=== PATIENT | male | born 1955 | race Two or more races ===

== ENCOUNTER 2020-11-22 14:19 | Inpatient (IN) | payer MEDICARE, OTHER ==
[~2020-11-22] VITALS: Ht 177.8 cm; Wt 96.6 kg
[2020-11-22] MEDS ORDERED: diphenhydrAMINE 50 MG/1 ML VIAL IM ONE ×2 (14:30→20:02)
[2020-11-22] MEDS ORDERED: OLANZAPINE 10 MG VIAL IM ONE (14:30)
[2020-11-22] MEDS ORDERED: LORAZEPAM 2 MG/1 ML VIAL IM ONE ×2 (14:30→20:02)
[2020-11-22] MEDS ORDERED: HALOPERIDOL LACTATE 5 MG/1 ML VIAL ONE (14:36)
[2020-11-22] MEDS ORDERED: HALOPERIDOL LACTATE 5 MG/1 ML VIAL IM ONE ×2 (14:45→20:02)
--- NOTE | 2020-11-22 14:45 | NUR ---
Halodol 5mg and benadryl 25mg given IM in left deltoid given acutely for patient agitation, patient noted screaming and threatening staff, no allergies noted, will continue to monitor
--- NOTE | 2020-11-22 16:18 | NUR ---
1505pm: Heel Gouger assumes care. Patient is resting comfortably on gurney with eyes closed. 1:1 sitter observation maintained. KARY Delacruz was called earlier by . 1511pm: Psych crisis saw [email or web address] [email or web address]. 1617pm: Patient is waiting for an available MHU bed & nurse@this time. MHU zinc furnace charger Araz will call ER as soon as possible.
--- NOTE | 2020-11-22 17:15 | NUR ---
1650pm: still no MHU bed or nurse available@this time, Dr Horta is aware. Patient is resting comfortably on gurney with eyes closed. 1:1 sitter maintained.
--- NOTE | 2020-11-22 17:34 | NUR ---
Patient has no allergic reaction to HAldol, hence allergy status was updated
--- NOTE | 2020-11-22 19:12 | NUR ---
Pt. admitted to MHU room 139B , under care of Dr. Gilliam. Nurse Ricardo accpeted patient. Belongings List completed. Patientl will go to MHU as soon as possible. Patient is sleeping, easily arousable, cooperative the moment. Security assistance was called to escort patient to MHU.
--- NOTE | 2020-11-22 19:13 | NUR ---
Still for transfer to [facility], endorsed to STEPHEN Major and nurse charge rn Adrian
[2020-11-22] MEDS ORDERED: TEMAZEPAM 7.5 MG CAPSULE PO PRN (20:00)
[2020-11-22] MEDS ORDERED: MAGNESIUM HYDROXIDE 30 ML LIQUID UDC PO PRN (20:00)
[2020-11-22] MEDS ORDERED: BLOOD SUGAR DIAGNOSTIC 1 EACH STRIP VI ONE (20:15)
[2020-11-22] MEDS ORDERED: METF-442 PO (20:35)
--- NOTE | 2020-11-22 21:00 | NUR ---
ADMISSION NOTE: AT APPROX 1930 ADMITTED 65 YEARS OLD MALE TO [facility] ON A 5150 FOR DTO AND GD. PER MEDICAL RECORDS, PATIENT IS HOMELESS. HE PRESENTED TO THE ED AT [facility] STATING THAT HE IS SCARED FOR HIS LIFE AND THERE IS NO WHERE SAFE FOR HIS TO GO. ONCE PATIENT WAS MEDICALLY CLEARED, HE WAS TRANSFER TO [facility] ER WHERE HE WAS PLACE ON A 5150 HOLD BY CRISES TEAM. PER HOLD, UPON ARRIVAL TO THE ED, PATIENT STARTED SCREAMING, HE BECAME AGGRESSIVE AND AGITATED, HE MADE THREATS TO HURT STAFF. HE ALSO RAMBLING ABOUT HEARING VOICES FROM GOD. IM SHOTS WERE GIVEN: HALDOL 5MG IM AND BENADRYL 25MG IM. UPON ADMISSION TO THE UNIT, PATIENT BECAME AGITATED, HE STATED, "WHERE IS MY MONEY". "THE OTHER HOSPITAL TOOK ALL MY MONEY". "I DON'T NEED TO BE HERE I NEED TO GO". PATIENT WAS RE DIRECTED AND REASSURED. HE WAS ABLE TO CALM DOWN. HOWEVER, HE REFUSED TO SIGN ADMISSION PAPERS AND BODY ASSESSMENT. THEREFORE, BODY ASSESSMENT WAS LIMITED D/T PATIENT'S POOR COMPLIANT. FACE TO FACE ASSESSMENT WAS DONE, PATIENT NOTED A/O X 3, HE REFLECTS WHAT IS WRITTEN ON THE HOLD. HE DENIED SI OR ANY THOUGHT TO HARM SELF. HE WAS ABLE TO VERBALLY CFS. PATIENT STATED THAT HE IS HERE BECAUSE HE WAS TIRED TO LIVE ON THE STREETS AND PUT UP WITH OTHER PEOPLE ON THE STREETS. HOLD WILL BE UP ON 11/25/20 AT 1530. PATIENT WAS GIVEN THE BOOKLET FOR PATIENT RIGHTS ON MENTAL HEALTH FACILITY. HE WAS ADVISED OF UNIT RULES, ROOM, BATHROOM AND ROOMMATES. PO FLUIDS AND SNACKS WERE GIVEN TO PATIENT. DR LEVINE AND CONI NUNO WERE NOTIFIED OF ADMISSION. WILL CONTINUE WITH Q15 MIN CHECKS.
--- NOTE | 2020-11-22 21:10 | NUR ---
PER PATIENT, HE STATED THAT HE ONLY TAKES METFORMIN 1000MG BID. CONI NUNO WAS NOTIFIED OF PATIENT'S ADMISSION AND TO RECONCILE HIS MEDICATIONS. WILL CONTINUE TO MONITOR Q15 MIN CHECKS
[2020-11-22 21:49] VITALS: BP 107/84
[2020-11-23] MEDS: LORAZEPAM 1 MG TABLET PO PRN ×2 (04:39→12:35)
--- NOTE | 2020-11-23 04:40 | NUR ---
PATIENT APPROACHED THE NURSING STATION STATING HE IS FEELING ANXIOUS. ATIVAN 1MG WAS OFFERED AND PATIENT WAS ABLE TO TAKE IT. WILL CONTINUE TO MONITOR.
[2020-11-23] MEDS ORDERED: diphenhydrAMINE 50 MG/1 ML VIAL IM ONE ×2 (06:15→19:45)
[2020-11-23] MEDS ORDERED: LORAZEPAM 2 MG/1 ML VIAL IM ONE ×2 (06:15→18:45)
[2020-11-23] MEDS ORDERED: HALOPERIDOL LACTATE 5 MG/1 ML VIAL IM ONE ×2 (06:15→19:45)
--- NOTE | 2020-11-23 06:25 | NUR ---
PATIENT APPROACHED THE NURSING STATION, HE STATED YELLING, DEMANDING AND SCREAMING, "WHERE IS MY CLOTHES. I WANT MY CLOTHES RIGHT NOW. I KNOW YOU ARE THE POLICE, GET ME OUT OF HERE". PATIENT WAS GIVEN MULTIPLE REDIRECTION AND REALITY CHECKS, YET INEFFECTIVE. HE CONTINUE DEMANDING, DELUSIONAL, THREATENING TO HIT STAFF AND AGITATED. DR LEVINE WAS NOTIFIED AND NEW ORDER OBTAINED TO ADMINISTER HALDOL 5MG, ATIVAN 2MG AND BENADRYL 25MG. ORDER WAS NOTED AND CARRIER OUT. WILL CONTINUE TO MONITOR.
--- NOTE | 2020-11-23 07:00 | NUR ---
PATIENT REFUSED LABS THIS MORNING. MULTIPLE REDIRECTION GIVEN YET INEFFECTIVE. WILL CONTINUE TO MONITOR.
--- NOTE | 2020-11-23 08:03 | NUR ---
Firearms Report: Cath Lab Nurse completed and submitted a DOJ firearms report for 5150 grave disability certification. A copy of report has been placed in patient chart.
[2020-11-23] MEDS: METFORMIN HCL 500 MG TABLET PO SCH ×2 (09:00→17:42)
[2020-11-23] MEDS: NICOTINE 14 MG/24HR PATCH TD SCH (09:00)
--- NOTE | 2020-11-23 09:14 | NUR ---
LASHANDA Initial Discharge Plan: Patient is homeless and will need a placement. Patient does not have any contacts at this time. This SW will help find pt proper placement. This SW contacted contact listed Mickey ([phone]) aunt and discussed treatment and discharge plan. She stated that pt will need a nursing facility and that he is an alcoholic. LASHANDA will work with the MD and pt to find proper placement and will coordinate discharge plan.
--- NOTE | 2020-11-23 09:15 | NUR ---
SW Family Contact: This SW contacted contact listed Mickey ([phone]) aunt and discussed treatment and discharge plan. She stated that pt will need a nursing facility and that he is an alcoholic.
--- NOTE | 2020-11-23 09:15 | NUR ---
Social Work Note/Substance Abuse Intervention: Patient refused brief substance abuse intervention and referred to [facility] ([phone]), [facility] ([phone]), and [facility] ([phone]). Patient's aunt Mickey stated that pt is an alcoholic.
--- NOTE | 2020-11-23 09:20 | NUR ---
Treatment Plan: Pt refused to sign treatment plan and was verbally abusive. Pt was uncooperative.
--- NOTE | 2020-11-23 12:05 | NUR ---
LASHANDA Individual Therapy: workers compensation claims supervisor met with patient for brief counseling to help address patients presenting problem aggressive behavior. Pt appeared verbally abusive and was yelling, "I want to leave". SW unable to conduct therapy at this time.
--- NOTE | 2020-11-23 18:52 | NUR ---
Pt came to the nursing station and started to yell at staff demanding to be released. Attempted to redirect the patient. Pt was not able to be redirected. Offered PO Ativan 1 mg. Pt began yelling at the nurse, saying that he only accepts 2 mg of Ativan. Security was called for safety. Pt went to the dinning room and became yelling at other patients, threatening them. Dr. Gilliam was called. Order for Ativan 2mg IM was received and given at the presence of security. Pt tolerated well.
--- NOTE | 2020-11-23 20:00 | NUR ---
CHEMICAL RESTRAIN: WHILE PATIENT WAS EVALUATED BY DR LEVINE, HE BECAME VERBALLY AGGRESSIVE TOWARD DR LEVINE. HE WAS HEARD YELLING AND SCREAMING, THEN HE STARTED THREATENING STAFF, DEMANDING TO BE RELEASED FORM THE UNIT. ATTEMPTED TO REDIRECT PATIENT BUT INEFFECTIVE. DR LEVINE ORDERED IM SHOTS: HALDOL 10MG IM AND BENADRYL 50MG IM ORDERS WERE NOTED AND CARRIER OUT. PATIENT ALSO REFUSED V/S. WILL CONTINUE TO MONITOR.
--- NOTE | 2020-11-23 21:00 | NUR ---
CHEMICAL RESTRAIN EFFECTIVE, PATIENT SLEEPING COMFORTABLE IN HIS ROOM IN BED. WILL CONTINUE TO MONITOR CLOSELY.
[2020-11-24] MEDS: NICOTINE 14 MG/24HR PATCH TD SCH (09:00)
[2020-11-24] MEDS: METFORMIN HCL 500 MG TABLET PO SCH ×2 (09:37→17:52)
[2020-11-24] MEDS: DIVALPROEX 250 MG TABLET.DR PO SCH ×3 (09:37→17:53)
[2020-11-24] MEDS: HALOPERIDOL 5 MG TABLET PO SCH ×3 (09:37→17:53)
[2020-11-24] MEDS: BENZTROPINE MESYLATE 1 MG TABLET PO SCH ×3 (09:37→17:52)
--- NOTE | 2020-11-24 13:51 | NUR ---
Gps/Staff Design Engineer- Patient requesting to be tranfered to [facility]. he does not want to be here per pt.. He stated"" i will sttart banging my head to the wall if they wont take me there" Reviewed safety, prompted to take his routine medications, claimed her does not like to take haldol, but was able to take themn
--- NOTE | 2020-11-24 13:53 | NUR ---
Gps/Manager Mobility- Patient denies being diebetic, kept asking for milk as well as juices.
--- NOTE | 2020-11-24 15:47 | NUR ---
Gps/Rear Admiral- Remain in his room in bed, quiet at this time. Monitored safety and needs.
--- NOTE | 2020-11-24 17:00 | NUR ---
NURSE CARE Report obtained from other dayshift nurse Olesya and assumed care until 1930. Received patient in room and eating dinner. Diaibetic but not on blood sugar and on oral hyperglycemia meds.
--- NOTE | 2020-11-24 19:15 | NUR ---
NURSE REPORT Report given to night nurse Tristine to assume care of patient. Diabetic, but no blood sugars to be taken.
[2020-11-25] MEDS: DIVALPROEX 250 MG TABLET.DR PO SCH ×3 (08:41→16:37)
[2020-11-25] MEDS: BENZTROPINE MESYLATE 1 MG TABLET PO SCH ×3 (08:41→16:37)
[2020-11-25] MEDS: HALOPERIDOL 5 MG TABLET PO SCH ×3 (08:41→16:37)
[2020-11-25] MEDS: NICOTINE 14 MG/24HR PATCH TD SCH (08:41)
[2020-11-25] MEDS: METFORMIN HCL 500 MG TABLET PO SCH ×2 (08:43→16:38)
[2020-11-25] MEDS: LORAZEPAM 1 MG TABLET PO PRN ×2 (09:49→18:25)
[2020-11-25] MEDS: ACETAMINOPHEN 325 MG TABLET PO PRN (12:23)
[2020-11-25 15:57] VITALS: BP 158/85
[2020-11-25] MEDS ORDERED: LOPERAMIDE HCL 2 MG CAPSULE PO PRN (18:15)
[2020-11-25] MEDS: MAG HYDROX/AL HYDROX/SIMETH 30 ML LIQUID UDC PO PRN (18:24)
--- NOTE | 2020-11-25 20:00 | NUR ---
RECEIVED REPORT FROM AM NURSE RAINA PT IS ALERT AND ORIENTED X4 INTRODUCED MYSELF TO PT HE SITTING DAYROOM WATCHING TV WITH PEERS CALM NO SIGNS OF AGITATION NOTED. WILL CONTINUE TO MONITOR.
[2020-11-26] MEDS: LORAZEPAM 1 MG TABLET PO PRN ×2 (04:06→22:02)
[2020-11-26] MEDS: DIVALPROEX 250 MG TABLET.DR PO SCH ×3 (08:35→16:15)
[2020-11-26] MEDS: METFORMIN HCL 500 MG TABLET PO SCH ×2 (08:35→16:15)
[2020-11-26] MEDS: BENZTROPINE MESYLATE 1 MG TABLET PO SCH ×3 (08:35→16:15)
[2020-11-26] MEDS: HALOPERIDOL 5 MG TABLET PO SCH ×3 (08:35→16:15)
[2020-11-26] MEDS: NICOTINE 14 MG/24HR PATCH TD SCH (08:39)
[2020-11-26] MEDS: ACETAMINOPHEN 325 MG TABLET PO PRN ×3 (08:50→22:05)
[2020-11-26] MEDS ORDERED: LORAZEPAM 2 MG/1 ML VIAL IM ONE (11:15)
[2020-11-26] MEDS ORDERED: HALOPERIDOL LACTATE 5 MG/1 ML VIAL IM ONE (11:15)
[2020-11-26] MEDS ORDERED: diphenhydrAMINE 50 MG/1 ML VIAL IM ONE (11:15)
--- NOTE | 2020-11-26 11:40 | NUR ---
Patient went to the nursing station to ask for juice. Explained to patient he is not allowed grape juice due to his diet. Patient stated he drinks beer and bottles of soda all the time and that he does not have Diabetes. Accessioner explained to him he is in a hospital and he is not allowed to have grape juice due to his diet. Accessioner explained to him we can tell the MD of this concern regarding his diet. Patient started raising voice and yelling. Patient became verbally abusive and cussing at staff. Contacted Dr. Nash for orders. Dr. Nash ordered Ativan IM 2mg, Benadryl IM 50mg and Haldol IM 10mg once. Order carried out. Patient rude using racial slurs at staff after IM administration. Will continue to monitor.
--- NOTE | 2020-11-26 18:23 | NUR ---
Patient in activity room. Alert and oriented x3. Compliant with medications and care. Patient had episode of agitation, yelling and being verbally abusive to staff. IM PRN medications were given as ordered. Patient needy and want needs met as soon as possible. Frequent patient rounding for safety. Will endorse to incoming shift for continuity of care.
--- NOTE | 2020-11-27 06:54 | NUR ---
Pt asleep at this time, no s/s of distress. No change in LOC. Compliant with meds during the shift. Slept for 6.30hrs. Needs attended to in a timely manner. Q15 min checks done. Safety precautions in place. Will endorse accordingly.
--- NOTE | 2020-11-27 07:15 | NUR ---
NURSE REPORT Report obtained from night nurse Ned and this nurse assumed care of patient. VSS. Afeb.
[2020-11-27] MEDS: BENZTROPINE MESYLATE 1 MG TABLET PO SCH ×4 (08:18→16:38)
[2020-11-27] MEDS: DIVALPROEX 250 MG TABLET.DR PO SCH ×4 (08:18→16:38)
[2020-11-27] MEDS: METFORMIN HCL 500 MG TABLET PO SCH ×2 (08:19→16:37)
[2020-11-27] MEDS: HALOPERIDOL 5 MG TABLET PO SCH ×3 (08:19→16:38)
[2020-11-27] MEDS: NICOTINE 14 MG/24HR PATCH TD SCH (08:20)
[2020-11-27] MEDS: ACETAMINOPHEN 325 MG TABLET PO PRN ×2 (08:21→14:07)
[2020-11-27] MEDS: LORAZEPAM 1 MG TABLET PO PRN ×3 (13:42→21:27)
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
--- NOTE | 2020-11-27 20:25 | NUR ---
GPS: Pt.states that he's not allergic to Seroquel. Verified with pt. several times and agreed. Communicated to MD Gilliam.
[2020-11-27] MEDS ORDERED: QUETIAPINE FUMARATE 100 MG TABLET PO SCH (21:00)
--- NOTE | 2020-11-28 06:29 | NUR ---
GPS: Pt.slept 5.30 last night. Now awake and watching tv. No aggressive behavior noted. Re-directed prn.
[2020-11-28] MEDS: LORAZEPAM 1 MG TABLET PO PRN (06:58)
--- NOTE | 2020-11-28 07:42 | NUR ---
SNF Referral: This SW sent clinicals to [facility] for placement option.
[2020-11-28] MEDS: DIVALPROEX 250 MG TABLET.DR PO SCH ×3 (08:46→16:54)
[2020-11-28] MEDS: QUETIAPINE FUMARATE 100 MG TABLET PO SCH ×2 (08:46→16:54)
[2020-11-28] MEDS: METFORMIN HCL 500 MG TABLET PO SCH ×2 (08:46→16:54)
[2020-11-28] MEDS: NICOTINE 14 MG/24HR PATCH TD SCH (08:47)
--- NOTE | 2020-11-28 13:27 | NUR ---
SNF Contact: This SW received a phone call from Skubana Admin from [facility] who stated pt is accepted.
[2020-11-28] MEDS: MAG HYDROX/AL HYDROX/SIMETH 30 ML LIQUID UDC PO PRN (18:55)
[2020-11-29] MEDS: DIVALPROEX 250 MG TABLET.DR PO SCH ×3 (08:43→16:23)
[2020-11-29] MEDS: METFORMIN HCL 500 MG TABLET PO SCH ×2 (08:43→16:24)
[2020-11-29] MEDS: QUETIAPINE FUMARATE 100 MG TABLET PO SCH ×2 (08:43→16:23)
[2020-11-29] MEDS: NICOTINE 14 MG/24HR PATCH TD SCH (08:44)
--- NOTE | 2020-11-29 11:05 | NUR ---
Court Hearing: Patient's court hearing for 1180 was today and it was upheld for GD.
--- NOTE | 2020-11-29 15:26 | NUR ---
Individual Therapy: adult protective caseworker met with patient for brief counseling for patient's presenting problem aggressive behavior. Pt appeared to be labile. Pt did not want to conduct therapy at this time.
[2020-11-29] MEDS: LORAZEPAM 1 MG TABLET PO PRN (19:04)
[2020-11-29 20:11] VITALS: BP 179/84
[2020-11-30] MEDS: QUETIAPINE FUMARATE 100 MG TABLET PO SCH ×2 (09:00→13:24)
[2020-11-30] MEDS: NICOTINE 14 MG/24HR PATCH TD SCH (09:00)
[2020-11-30] MEDS: DIVALPROEX 250 MG TABLET.DR PO SCH (10:01)
[2020-11-30] MEDS: METFORMIN HCL 500 MG TABLET PO SCH ×2 (10:01→17:51)
[2020-11-30] MEDS: LORAZEPAM 1 MG TABLET PO PRN (13:18)
[2020-11-30] MEDS ORDERED: DIVALPROEX 500 MG TABLET.DR PO SCH (21:00)
[2020-11-30] MEDS ORDERED: QUETIAPINE FUMARATE 25 MG TABLET PO SCH (21:00)
--- NOTE | 2020-12-01 07:27 | NUR ---
pt slept for approx 7.45 hrs. through the night. he refused blood drawn for valproic levels. he got verbally aggressive stating, "I say NO, don't you understand NO. get out of my room!". He is hard to redirect. will continue to monitor.
[2020-12-01] MEDS: HALOPERIDOL 5 MG TABLET PO SCH ×3 (08:25→16:30)
[2020-12-01] MEDS: METFORMIN HCL 500 MG TABLET PO SCH ×2 (08:25→16:31)
[2020-12-01] MEDS: BENZTROPINE MESYLATE 1 MG TABLET PO SCH ×3 (08:26→16:30)
[2020-12-01] MEDS: DIVALPROEX 250 MG TABLET.DR PO SCH (08:32)
[2020-12-01] MEDS: NICOTINE 14 MG/24HR PATCH TD SCH (08:36)
[2020-12-01] MEDS ORDERED: HALOPERIDOL 2 MG TABLET PO SCH (09:00)
--- NOTE | 2020-12-01 09:03 | NUR ---
Gps/Venetian Blind Machine Operator- Stayed in the dinning room during breakfast, refusing to take depakote claimed he does not have blood drwsm he;s been refusing so why he needs to take, informed patient the importance of taking his routine psych meds. encouraged to talk to Dr Gilliam ,to tell him how he feels about his meds. then gets rude, angry, irritable, argumentative.
[2020-12-01] MEDS: ACETAMINOPHEN 325 MG TABLET PO PRN ×2 (12:47→18:05)
[2020-12-01] MEDS: LORAZEPAM 1 MG TABLET PO PRN ×2 (15:38→21:21)
[2020-12-01] MEDS: GABAPENTIN 300 MG CAPSULE PO SCH ×2 (15:38→16:31)
--- NOTE | 2020-12-01 21:24 | NUR ---
patient c/o anxiety. ativan 1 mg po given.
--- NOTE | 2020-12-01 22:24 | NUR ---
patient is calm now. prn effective for anxiety.
--- NOTE | 2020-12-02 06:11 | NUR ---
GPS: Remain calm and cooperative. ultram 50 mg po given x1 for pain and effective. slept 4.45 hrs after Restoril 7.5 mg po given for sleep. voided 500c urine in urinal. brp x2. resting on bed comfortably. continue plan of care. Addendum: 12/02/20 at 0624 by ALICE RAMOS LVN wrong patient charting.
--- NOTE | 2020-12-02 06:24 | NUR ---
Remain uncooperative with care. compliant with meds. slept 6.45 hrs through the night after restoril 7.5 mg po given. no agitation noted resting in bed comfortably.
[2020-12-02 07:48] VITALS: BP 188/108
[2020-12-02] MEDS: LORAZEPAM 1 MG TABLET PO PRN (07:59)
[2020-12-02] MEDS: BENZTROPINE MESYLATE 1 MG TABLET PO SCH ×3 (07:59→16:20)
[2020-12-02] MEDS: GABAPENTIN 300 MG CAPSULE PO SCH ×3 (07:59→16:20)
[2020-12-02] MEDS: HALOPERIDOL 5 MG TABLET PO SCH ×3 (07:59→16:20)
[2020-12-02] MEDS: METFORMIN HCL 500 MG TABLET PO SCH ×2 (07:59→16:20)
[2020-12-02] MEDS: NICOTINE 14 MG/24HR PATCH TD SCH (08:00)
--- NOTE | 2020-12-02 08:00 | NUR ---
NURSE REPORT REPORT OBTAINED FROM NIGHT NURSE NURSE ALICE AT 0715 AND THIS NURSE ASSUMED CARE OF PATIENT. RECEIVED PATIENT AWAKE IN THE AM AND AMBULATING IN HALLWAY, YELLING OUT "WHERE IS THE FOOD, I AM HUNGRY." NO SXS OF PAIN OR DISCOMFORT. VSS. AFEB.
[2020-12-02] MEDS: MAG HYDROX/AL HYDROX/SIMETH 30 ML LIQUID UDC PO PRN (08:57)
[2020-12-02 11:09] VITALS: BP 160/69
[2020-12-02] MEDS: LISINOPRIL 10 MG TABLET PO SCH (11:15)
[2020-12-02] MEDS: ACETAMINOPHEN 325 MG TABLET PO PRN (13:37)
[2020-12-02 16:30] VITALS: BP 136/78
--- NOTE | 2020-12-02 19:10 | NUR ---
NURSE REPORT Report given to night nurse Jaimee and Kardex given. VSS. Afeb. Patient refused to take Ativan 1 mg and would be yelling, saying that the MD should order 2 mg Ativan. Otherwise took all his scheduled meds. No c/o pain or discomfort.
[2020-12-02 20:00] VITALS: BP 160/90
[2020-12-03 07:53] VITALS: BP 162/85
[2020-12-03] MEDS: GABAPENTIN 400 MG CAPSULE PO SCH ×3 (08:13→17:03)
[2020-12-03] MEDS: LORAZEPAM 1 MG TABLET PO PRN (08:13)
[2020-12-03] MEDS: HALOPERIDOL 5 MG TABLET PO SCH ×3 (08:13→17:00)
[2020-12-03] MEDS: METFORMIN HCL 500 MG TABLET PO SCH ×2 (08:13→17:00)
[2020-12-03] MEDS: BENZTROPINE MESYLATE 1 MG TABLET PO SCH ×3 (08:13→17:00)
[2020-12-03] MEDS: LISINOPRIL 10 MG TABLET PO SCH (08:14)
[2020-12-03] MEDS: NICOTINE 14 MG/24HR PATCH TD SCH (08:14)
[2020-12-03] MEDS: ACETAMINOPHEN 325 MG TABLET PO PRN (11:10)
[2020-12-03 16:57] VITALS: BP 163/85
[2020-12-03] MEDS ORDERED: HALOPERIDOL 5 MG TABLET PO SCH (17:00)
[2020-12-03] MEDS ORDERED: BENZTROPINE MESYLATE 1 MG TABLET PO SCH (17:00)
[2020-12-03] MEDS: MAG HYDROX/AL HYDROX/SIMETH 30 ML LIQUID UDC PO PRN (17:03)
[2020-12-03 20:02] VITALS: BP 148/78
--- NOTE | 2020-12-04 06:19 | NUR ---
Pt is angry, labile, demanding, and entitled. Pt constantly requests snacks and juices despite his doctor order for a diabetic diet. Pt becomes explosive and screams at staff when limits are set, he is verbally abusive. He called this medical technical writer a "bitch" multiple times and threatened to norma "taking my humanity". Pt is uncooperative, and refused prn medication to decrease his agitated behavior. Pt was eventually verbally redirected and went to sleep. Pt awoke at 0300 and demanded ice water. When he was told ice was not available at that time, Pt muttered expletives under his breath and walked away, slamming the door to his room behind him. Upon opening his door, Pt was observed sitting in a chair and staring angrily at staff. Pt is resistant to care. Pt is grandiose and insists he has "plenty of money, there is no reason I need to be here, I have several houses!". Pt is disruptive at times, redirection provided as needed. Denies pain, VS stable. Appears preoccupied and hypervigilant, Pt stared at the doorway until 0600. Pt refused shower and presents with poor ADLs: malodorous with soiled clothing, uncombed hair, and dirty fingernails. Pt was seen spitting in the dining room and became enraged when asked to stop, stating he has a "condition" and he's a "disabled 65 year old diabetic!" Pt made several accusations of "neglect and abuse" but eventually calmed and sat down to watch TV. Denies pain, BP stable.
--- NOTE | 2020-12-04 06:35 | NUR ---
Refused Labs this AM. Verbally abusive toward blast furnace keeper. Redirection provided. Pt remains intermittently hostile.
[2020-12-04] MEDS: MAG HYDROX/AL HYDROX/SIMETH 30 ML LIQUID UDC PO PRN (08:01)
[2020-12-04] MEDS: GABAPENTIN 400 MG CAPSULE PO SCH ×3 (08:02→16:54)
[2020-12-04] MEDS: BENZTROPINE MESYLATE 1 MG TABLET PO SCH ×3 (08:02→16:55)
[2020-12-04] MEDS: METFORMIN HCL 500 MG TABLET PO SCH ×2 (08:02→16:54)
[2020-12-04] MEDS: HALOPERIDOL 5 MG TABLET PO SCH ×3 (08:02→16:54)
[2020-12-04] MEDS: NICOTINE 14 MG/24HR PATCH TD SCH (08:03)
[2020-12-04] MEDS: LISINOPRIL 10 MG TABLET PO SCH (08:07)
--- NOTE | 2020-12-04 13:25 | NUR ---
SW Family Note: This SW contacted pt's aunt Mickey ([phone]) and notified that pt is accepted at [facility] and will be discharged 12/05. She is agreeable with this plan.
--- NOTE | 2020-12-04 13:27 | NUR ---
SW Note: This SW reported to pt that he is accepted at [facility] and he was agreeable of going here.
[2020-12-04] MEDS: LORAZEPAM 1 MG TABLET PO PRN (13:38)
[2020-12-04] MEDS: ACETAMINOPHEN 325 MG TABLET PO PRN (15:11)
[2020-12-04 20:24] VITALS: BP 132/75
--- NOTE | 2020-12-05 08:04 | NUR ---
SW Discharge note: Patient will be discharged to alf facility, [facility] ([address], [place] [address]; ) via Ambulance transportation at 12PM. Environmental Coordinator spoke with Reji Closing Supervisor at [facility]; ([phone]), who stated patient will be accepted today. Patients aunt Mickey ([phone]) is aware and agreeable with discharge. Patient is alert and oriented x2 and is unable to plan for self-care. Patient denies any suicidal or homicidal ideations. Patient denies visual/auditory hallucinations. Patient is aware and agreeable with discharge plans. Patient will continue to follow-up with (Psychiatrist) Dr. Gilliam and (Interactive Multimedia Designer) Dr. Erwin at [facility] [address], [place] [address]; ). Patient signed the homeless waiver upon discharge and a copy was placed in the chart. Homeless resources were provided and include 211 information line for shelters and homeless resources. A copy of all resources given to patient was also placed in the chart. Patient presents with euthymic and congruent mood.
[2020-12-05] MEDS: BENZTROPINE MESYLATE 1 MG TABLET PO SCH ×2 (08:18→12:19)
[2020-12-05] MEDS: METFORMIN HCL 500 MG TABLET PO SCH (08:18)
[2020-12-05] MEDS: HALOPERIDOL 5 MG TABLET PO SCH ×2 (08:18→12:19)
[2020-12-05] MEDS: GABAPENTIN 400 MG CAPSULE PO SCH ×2 (08:18→12:19)
[2020-12-05] MEDS: NICOTINE 14 MG/24HR PATCH TD SCH (08:19)
[2020-12-05] MEDS: LISINOPRIL 10 MG TABLET PO SCH (08:19)
--- NOTE | 2020-12-05 11:48 | NUR ---
Patient will be discharged to [facility] via Ambulance transportation at 1PM. all personal belonging returned to pt. Patient is aware and agreeable with discharge plans. vital sign has been refused , denies any pain or discomfort.report called in to [facility] spoke with Vimal MITCHELL. Patient will continue to follow-up with (Psychiatrist) Dr. Gilliam and (Communications Equipment Installer) Dr. Erwin at [facility] . Patient signed the homeless waiver upon discharge and a copy was placed in the chart.
[2020-12-05] MEDS: LORAZEPAM 1 MG TABLET PO PRN (15:17)
== END 2020-12-05 15:30 | DRG 885 ==
LOC: ER 14:19 → GPS 19:08 → EDSEX 19:08
PROVIDERS: ADMIT Psychiatry & Neurology Psychiatry; ATTEND Registered Nurse
DX: F25.9 Schizoaffective disorder, unspecified (principal); E11.9 Type 2 diabetes mellitus without complications; F32.9 Major depressive disorder, single episode, unspecified; I10 Essential (primary) hypertension; F03.90 Unspecified dementia, unspecified severity, without behavioral disturbance, psychotic disturbance, mood disturbance, and anxiety; Z20.822 Contact with and (suspected) exposure to COVID-19; F29 Unspecified psychosis not due to a substance or known physiological condition; Z73.6 Limitation of activities due to disability; F15.159 Other stimulant abuse with stimulant-induced psychotic disorder, unspecified; E66.9 Obesity, unspecified; Z68.30 Body mass index [BMI] 30.0-30.9, adult; Z79.84 Long term (current) use of oral hypoglycemic drugs; Z59.0 Homelessness
CPT/HCPCS: A4663; J1200; J1630; J2060; J3490

== ENCOUNTER 2021-07-01 19:53 | Inpatient (IN) | payer MEDICARE, OTHER ==
[~2021-07-01] VITALS: Ht 175.3 cm; Wt 91.2 kg
[~2021-07-01 19:53] MED LIST: METF-442 PO
--- NOTE | 2021-07-01 20:10 | NUR ---
Per pt is medically clear for admission to MHU.
[2021-07-01] MEDS ORDERED: ARIP10TA9 PO (20:11)
[2021-07-01] MEDS ORDERED: ACETAMINOPHEN 325 MG TABLET PO PRN (21:15)
[2021-07-01] MEDS ORDERED: MAGNESIUM HYDROXIDE 30 ML LIQUID UDC PO PRN (21:15)
[2021-07-01] MEDS ORDERED: BLOOD SUGAR DIAGNOSTIC 1 EACH STRIP VI ONE (21:15)
[2021-07-01] MEDS ORDERED: MAG HYDROX/AL HYDROX/SIMETH 30 ML LIQUID UDC PO PRN (21:15)
[2021-07-01] MEDS ORDERED: TEMAZEPAM 7.5 MG CAPSULE PO PRN (21:15)
[2021-07-01] MEDS ORDERED: CLONAZEPAM 0.5 MG TABLET PO PRN (21:15)
[2021-07-01 21:45] VITALS: BP 146/78
--- NOTE | 2021-07-01 21:49 | NUR ---
REPORT WAS GIVEN TO RN MHU. PT WAS TRANSFERED TO ROOM # 141B.
--- NOTE | 2021-07-01 23:55 | NUR ---
ADMISSION NOTE: 65 YRS OLD HOMELESS MALE WAS TRANSFERRED FROM [facility]. PT CALLED THE POLICE AND SAID HE WANTED TO WALK ON THE FREEWAY AND KILL HIMSELF. PT STATED HE IS HAVING ISSUES WITH GOD AND HIS ANGELS.HE IS ON 72 HR HOLD FOR DANGER TO SELF.HE ARRIVED TO THE UNIT VIA STRETCHER ACCOMPANIED BY ER STAFF AFTER MEDICALLY CLEARED FROM ER.DROWSY BUT AROUSABLE UPON ARRIVAL THEN FULLY AWAKE AND ALERT. A/O X3,BECAME ANXIOUS,SUSPICIOUS,RESTLESS,POOR CONCENTRATION,ANGRY WITH PRESSURED SPEECH AND FIXATED ON FOOD.REFUSED ACCUCHECK WHEN OFFERED.PT STATED THAT HE ISN'T DIABETES BUT HE IS ON METFORMIN BID. PT SIGNED ALL ADMIT PAPERS AND ABLE TO PROVIDE HIS INFORMATIONS THEN STOPPED WHEN STAFF ASKED HIM FOR THE REASON WHY HE'S HERE.PT STATED,"I'M TIRED TO ANSWER THE QUESTIONS,I JUST WANT TO GO TO SLEEP." PT DENIES SI/HI/A&V H DURING THE INTERVIEW.HE WENT TO SLEEP AFTER HE FINISHED HIS SNACKS.IN NO ACUTE DISTRESS.WILL CONTINUE TO MONITOR VERY CLOSELY FOR S/I.
--- NOTE | 2021-07-02 13:23 | NUR ---
SW Discharge Note: Pt was admitted to [facility] by ambulance for a 5150 hold for a danger to himself. Pt reported he is homeless and pt requested the SW's help with placement to a local nursing facility. Pt reported he does not have any family. SW will continue to work with pt and MD to ensure a safe and proper discharge plan.
--- NOTE | 2021-07-02 13:24 | NUR ---
SW Admit Source: Pt was admitted to [facility] by ambulance for a 5150 hold for a danger to himself. Pt reported he is homeless and pt requested the SW's help with placement to a local nursing facility. Pt reported he does not have any family. SW will continue to work with pt and MD to ensure a safe and proper discharge plan.
--- NOTE | 2021-07-02 14:02 | NUR ---
GPS: Nursing Notes: Destructive Behavior to Self: Patient is awake and responding to his name, uncooperative with nursing care, poor anger management, loud and pressured speech, gets easily irritable when his demands are met immediately, using profanities toward staff, poor grooming, unkempt appearance, resistant with nursing care, refusing to answer questions, verbally lewis for safety, denies SI, continue to monitor for safety, unable to formulate a viable plan for self care, continue with treatment plan.
[2021-07-02] MEDS: OLANZAPINE 5 MG TABLET PO SCH (20:35)
[2021-07-03] MEDS: METFORMIN HCL 500 MG TABLET PO SCH ×2 (08:00→18:00)
[2021-07-03 08:04] VITALS: BP 171/82
--- NOTE | 2021-07-03 09:46 | NUR ---
Firearms Report: Mobile Lounge Driver Or Operator completed and submitted a DOJ firearms report for 5150 a danger to himself. A copy of report has been placed in patient chart
--- NOTE | 2021-07-03 15:48 | NUR ---
Social Work Coordination of Care: Barrel Header faxed patient's referral packet including: History and Physical, Consultation, Progress Notes, Medication List and Labs to the following facilities for review and possible longterm placement: [facility] ([phone]) and spoke with Sandie in admissions.
[2021-07-03] MEDS: OLANZAPINE 5 MG TABLET PO SCH (20:18)
[2021-07-03] MEDS ORDERED: CLONIDINE HCL 0.1 MG TABLET PO PRN (21:30)
--- NOTE | 2021-07-04 03:03 | NUR ---
Received patient at the start of the shift in his room with the door closed and the lights off. This caption writer went in the room and turned on the light. The patient begun to yell " Who do you think you are. You cant just come into my room and turn on the light!" The unit rules were explained to the patient at that time. The patient did agree to take his PM medications, but refused to have VS taken or to take any medications r/t "Diabetes , cause I don't have it and do not need any other of those medications." This patient is paranoid and when he came out of his room to get snack, he appeared afraid to go in the day room. Reassurance provided, firm limits set and continuing to monitor for compliance as well as behavior escalation .
[2021-07-04] MEDS: METFORMIN HCL 500 MG TABLET PO SCH ×2 (08:00→17:21)
[2021-07-04] MEDS: METOPROLOL TARTRATE 25 MG TABLET PO SCH ×2 (08:27→20:35)
--- NOTE | 2021-07-04 15:35 | NUR ---
Received patient awake in his room. A/O X 2 to person. Pt. is withdrawn, isolative, uncooperative with care, refusing vital signs and medications. Ambulates independently. Total care. Pt. is encourage to verbalizes concerns. Fall and safety precautions implemented. l
[2021-07-04] MEDS: OLANZAPINE 5 MG TABLET PO SCH (20:35)
--- NOTE | 2021-07-05 06:37 | NUR ---
GPS: Remain uncooperative with meds and care. easily imitable. slept 7.45 hrs through the night. continue plan of care.
[2021-07-05] MEDS: METFORMIN HCL 500 MG TABLET PO SCH (08:00)
[2021-07-05] MEDS: METOPROLOL TARTRATE 25 MG TABLET PO SCH (09:00)
--- NOTE | 2021-07-05 09:52 | NUR ---
LASHANDA Discharge Note: Pt will be discharged to [facility] [address] [place] [address] ([phone]) via Ambulance transportation at 1PM. LASHANDA spoke with admin coordinator, Shelia ([phone]) at the facility who states they are ready to accept the patient today. Pt is aware and agreeable with discharge plans. Pt is alert and oriented x4, is unable to plan for self-care at this time; however, is willing to accept care at SNF. Pt denies any suicidal or homicidal ideation. Pt will follow-up at the facility with Psychiatrist, Dr. Romeo and Lathe Tender, Dr. Erwin. Pt presents with calm mood and congruent affect. Patient signed the homeless waiver upon discharge and a copy was placed in the chart. Homeless resources were provided and include 211 information line for shelters and homeless resources. A copy of all resources given to patient was also placed in the chart.
--- NOTE | 2021-07-05 11:34 | NUR ---
LASHANDA Family Contact: LASHANDA called and left a voicemail for pt's aunt Mickey ([phone]) regarding pt's discharge today to [facility] ([phone]). LASHANDA spoke with aunt Mickey on 07/03/21 and Mickey was agreeable with pt discharging to SNF upon discharge.
--- NOTE | 2021-07-05 12:30 | NUR ---
Gps/Conveyor Operator- Called [facility] , report was given to Jayde Nursing Rn Intensive Care Unit kaylie santiago in good spirit, but still refusing to have his v/s check, refusing to take routine meds. needing lots of encouragement. and prmpting.
--- NOTE | 2021-07-05 13:30 | NUR ---
Gps/Obiee Architect- Discharged in [facility] via [facility], all belongings given back to patient, no complaints noted. denies S.I. no H.I.
== END 2021-07-05 13:30 | DRG 885 ==
LOC: ER 20:11 → GPS 20:33
PROVIDERS: ADMIT Nurse Practitioner Psychiatric/Mental Health; ATTEND Student in an Organized Health Care Education/Training Program
DX: F31.9 Bipolar disorder, unspecified (principal); E11.9 Type 2 diabetes mellitus without complications; Z79.84 Long term (current) use of oral hypoglycemic drugs; E66.9 Obesity, unspecified; F20.9 Schizophrenia, unspecified; I10 Essential (primary) hypertension; Z20.822 Contact with and (suspected) exposure to COVID-19; Z59.00 Homelessness unspecified; Z68.29 Body mass index [BMI] 29.0-29.9, adult; F22 Delusional disorders; F19.11 Other psychoactive substance abuse, in remission
CPT/HCPCS: A4663

== ENCOUNTER 2024-05-23 17:38 | Inpatient (IN) | payer MEDICARE, OTHER ==
[~2024-05-23] VITALS: Ht 175.3 cm; Wt 102.1 kg
[2024-05-23 22:15] VITALS: BP 137/70; TEMP 98.1; O2SAT 98
[2024-05-23] MEDS ORDERED: MAG HYDROX/AL HYDROX/SIMETH 30 ML LIQUID UDC PO PRN (22:30)
[2024-05-23] MEDS ORDERED: ZOLPIDEM 5 MG TABLET PO PRN ×2 (22:30)
[2024-05-23] MEDS ORDERED: LORAZEPAM 1 MG TABLET PO PRN (22:30)
[2024-05-23] MEDS ORDERED: MAGNESIUM HYDROXIDE 30 ML LIQUID UDC PO PRN (22:30)
[2024-05-23] MEDS: BLOOD SUGAR DIAGNOSTIC 1 EACH STRIP VI ONE (22:50)
[2024-05-23] MEDS: ACETAMINOPHEN 325 MG TABLET PO PRN (23:20)
[2024-05-23] MEDS: NICOTINE 21 MG/24HR PATCH TD SCH (23:20)
[2024-05-24] MEDS: LORAZEPAM 1 MG TABLET PO PRN ×2 (13:27→20:53)
[2024-05-24] MEDS ORDERED: OLANZAPINE ZYDIS 5 MG TAB.RAPDIS PO PRN (13:45)
[2024-05-24] MEDS: DIVALPROEX 500 MG TABLET.DR PO SCH (13:45)
[2024-05-24] MEDS: risperiDONE 0.5 MG TABLET PO SCH (14:05)
[2024-05-24] MEDS ORDERED: ASPI81TA31 PO (14:12)
[2024-05-24] MEDS ORDERED: LISI20TA30 PO (14:12)
[2024-05-24] MEDS ORDERED: AMLO10TA59 PO (14:12)
[2024-05-24] MEDS: risperiDONE 2 MG TABLET PO SCH (20:54)
[2024-05-25 08:41] VITALS: BP 150/72; TEMP 98; O2SAT 98
[2024-05-25] MEDS ORDERED: INSULIN REGULAR, HUMAN 300 UNITS/3 ML VIAL SQ PRN (13:00)
[2024-05-25] MEDS ORDERED: DEXTROSE 50% 50 ML DISP.SYRIN IV PRN (13:00)
[2024-05-25] MEDS: GABAPENTIN 100 MG CAPSULE PO SCH (13:49)
[2024-05-25 15:30] VITALS: BP 117/57; TEMP 98; O2SAT 98
[2024-05-25] MEDS: BLOOD SUGAR DIAGNOSTIC 1 EACH STRIP VI SCH (16:12)
[2024-05-25 20:00] VITALS: TEMP 97.9
[2024-05-26 07:51] VITALS: BP 130/71; TEMP 98.2; O2SAT 99
[2024-05-26] MEDS: ASPIRIN 81 MG TAB.CHEW PO SCH (08:50)
[2024-05-26] MEDS: LISINOPRIL 20 MG TABLET PO SCH (08:50)
[2024-05-26] MEDS: INSULIN REGULAR, HUMAN 1000 UNIT/10 ML VIAL SQ PRN (08:51)
[2024-05-26] MEDS: AMLODIPINE 10 MG TABLET PO SCH (08:51)
[2024-05-26] MEDS: risperiDONE-M 0.5 MG TAB.RAPDIS PO SCH ×2 (17:24→20:22)
[2024-05-27 08:14] VITALS: BP 144/69; TEMP 98.2; O2SAT 99
[2024-05-27] MEDS: GABAPENTIN 300 MG CAPSULE PO SCH (12:45)
[2024-05-27] MEDS ORDERED: GABAPENTIN 100 MG CAPSULE PO SCH (13:00)
[2024-05-27 16:14] VITALS: BP 138/61; TEMP 97.8; O2SAT 100
[2024-05-27 16:59] LABS: *BILIRUBIN,URIN NEGATIVE (NEGATIVE); *BLOOD, URINE NEGATIVE (NEGATIVE); *CLARITY,URINE CLEAR (CLEAR); *COLOR,URINE YELLOW (YELLOW); *KETONES,URINE NEGATIVE (NEGATIVE); *PROTEIN,URINE NEGATIVE (NEGATIVE); *UROBILINOGEN,URINE 0.2 E.U./dl (NORMAL); LEUKOCYTE ESTERASE ,URINE NEGATIVE (NEGATIVE); NITRITE, URINE NEGATIVE (NEGATIVE); UGLUCOSE NEGATIVE (NEGATIVE)
[2024-05-27 19:47] VITALS: BP 145/64; TEMP 98.1; O2SAT 99
[2024-05-28 08:14] VITALS: BP 132/51; TEMP 98.2; O2SAT 100
[2024-05-28 16:24] VITALS: BP 132/56; TEMP 98.2; O2SAT 100
[2024-05-28 20:00] VITALS: BP 121/59; TEMP 97.9; O2SAT 97
[2024-05-28] MEDS: GABAPENTIN 300 MG CAPSULE PO SCH (20:15)
[2024-05-29 16:14] VITALS: BP 109/65; TEMP 98.3; O2SAT 100
[2024-05-29 20:00] VITALS: BP 110/70; TEMP 98; O2SAT 95
[2024-05-30 07:53] VITALS: BP 118/70; TEMP 98.1; O2SAT 98
[2024-05-30 16:00] VITALS: BP 116/59; TEMP 98.1; O2SAT 96
[2024-05-30 20:00] VITALS: BP 119/65; TEMP 98.4; O2SAT 96
[2024-05-31 08:14] VITALS: BP 166/79; TEMP 98.2; O2SAT 96
[2024-05-31] MEDS: CHLORDIAZEPOXIDE HCL 25 MG CAPSULE PO SCH (16:21)
[2024-05-31 20:00] VITALS: BP_SYST 102; BP_SYST 95; BP_DIAS 57; BP_DIAS 63; TEMP 97.7; TEMP 98.2; O2SAT 98; O2SAT 99
[2024-06-01 08:14] VITALS: BP 184/91; TEMP 98; O2SAT 98
[2024-06-01] MEDS: BENZTROPINE MESYLATE 0.5 MG TABLET PO SCH ×2 (10:40→20:36)
[2024-06-01 16:38] VITALS: BP 92/51; TEMP 97.8; O2SAT 96
[2024-06-02 08:12] VITALS: BP 114/56; TEMP 98; O2SAT 96
[2024-06-02 16:13] VITALS: BP 130/70; TEMP 98.2; O2SAT 100
[2024-06-02 20:31] VITALS: BP 151/79; TEMP 98.6; O2SAT 98
[2024-06-03 07:44] VITALS: BP 143/63; TEMP 97.6; O2SAT 97
[2024-06-03] MEDS: OLANZAPINE ZYDIS 5 MG TAB.RAPDIS PO PRN (08:42)
[2024-06-03 16:00] VITALS: BP 131/78; TEMP 97.4; O2SAT 97
== END 2024-06-03 16:15 | DRG 885 ==
LOC: ER 17:38 → GPS 18:15
PROVIDERS: ADMIT Psychiatry & Neurology Psychosomatic Medicine; ATTEND Nurse Practitioner Acute Care
DX: F25.0 Schizoaffective disorder, bipolar type (principal); F10.139 Alcohol abuse with withdrawal, unspecified; R45.851 Suicidal ideations; Z59.00 Homelessness unspecified; E11.9 Type 2 diabetes mellitus without complications; Z79.84 Long term (current) use of oral hypoglycemic drugs; Z91.148 Patient's other noncompliance with medication regimen for other reason; F15.11 Other stimulant abuse, in remission; F10.10 Alcohol abuse, uncomplicated; Z91.199 Patient's noncompliance with other medical treatment and regimen due to unspecified reason; I10 Essential (primary) hypertension; E11.40 Type 2 diabetes mellitus with diabetic neuropathy, unspecified; Z86.19 Personal history of other infectious and parasitic diseases
CPT/HCPCS: J1815